=== PATIENT | male | born 1945 | race Caucasian/White ===

== ENCOUNTER 2018-12-17 09:49 | Emergency (ER) | payer MEDICARE ==
[~2018-12-17] VITALS: Ht 172.7 cm; Wt 82.2 kg
[2018-12-17 09:51] VITALS: BP 129/90
[2018-12-17] MEDS ORDERED: TETanus/Pertussis (Acell)/Diphther VAC/PF (Tdap-Adult) 0.5ml syringe IM ONE (11:45)
[2018-12-17] MEDS: bacitracin 15gm ointment TP ONE ×2 (11:45→12:05)
[2018-12-17] MEDS ORDERED: LIDOcaine 1% w/epiNEPHrine 1:200,000 30ml vial IM ONE (11:45)
--- NOTE | 2018-12-17 13:52 | NUR ---
PT LEFT WITHOUT BACITRACIN TREATMENT AND DC PAPERWORK.
== END 2018-12-17 13:52 | disposition home or self-care (01) ==
LOC: ER 09:50
DX: S81.012A Laceration without foreign body, left knee, initial encounter (principal); W20.8XXA Other cause of strike by thrown, projected or falling object, initial encounter; Y93.89 Activity, other specified; Y92.89 Other specified places as the place of occurrence of the external cause; Y99.8 Other external cause status
CPT/HCPCS: 12004; 71045; 73564; 90471; 90715; 99284; J3490

== ENCOUNTER 2025-01-31 11:20 | Emergency (ER) | payer OTHER, MEDICARE ==
[~2025-01-31] VITALS: Ht 172.7 cm; Wt 75.0 kg
[2025-01-31] MEDS: normal saline 500ml IV soln 500 ML IV ONE (11:40)
[2025-01-31] MEDS ORDERED: iohexol 350MG/ML 100ml bottle IV ONE (11:46)
[2025-01-31 12:00] LABS: BASOPHILS % (AUTO) 0.3 % (0-1); EOSINOPHILS # (AUTO) 0.1 X10'3 (0-0.9); EOSINOPHILS % (AUTO) 0.8 % (0-6); HEMATOCRIT 43.7 % (42.0-52.0); HEMOGLOBIN 13.7 g/dl (14.0-17.9); LYMPHOCYTES # (AUTO) 1.4 X10'3 (1.1-4.8); LYMPHOCYTES % (AUTO) 13.1 % (21-51); MEAN CORPUSCULAR HEMOGLOBIN 29.2 PG (27.0-31.0); MEAN CORPUSCULAR HGB CONC 31.4 g/dL (33.0-36.5); MEAN CORPUSCULAR VOLUME 92.9 FL (78-98); MEAN PLATELET VOLUME 8.6 FL (7.4-10.4); MONOCYTES # (AUTO) 0.6 X10'3 (0-0.9); MONOCYTES % (AUTO) 6.1 % (2-12); NEUTROPHILS # (AUTO) 8.5 X10'3 (1.8-7.7); NEUTROPHILS % (AUTO) 79.7 % (42-75); PLATELET COUNT 136 X10'3 (140-440); RED BLOOD COUNT 4.71 X10'6 (4.70-6.10); RED CELL DISTRIBUTION WIDTH 15.8 % (11.5-14.5); WHITE BLOOD COUNT 10.7 X10'3 (4.5-11.0)
[2025-01-31 12:18] LABS: D-DIMER 8.38 MG/L FEU (0-0.50)
[2025-01-31 12:20] LABS: ALANINE AMINOTRANSFERASE 16 U/L (12-78); ALBUMIN 3.5 G/DL (3.4-5.0); ALKALINE PHOSPHATASE 54 IU/L (46-116); ANION GAP 8 (8-16); ASPARTATE AMINO TRANSFERASE 14 U/L (10-37); BLOOD UREA NITROGEN 24 MG/DL (7-18); BUN/CREATININE RATIO 25.8 (10.0-20.0); CALCIUM 8.8 MG/DL (8.5-10.1); CHLORIDE 107 MMOL/L (99-107); CREATININE 0.93 MG/DL (0.60-1.10); GLUCOSE 122 MG/DL (70-104); POTASSIUM 3.8 MMOL/L (3.5-5.1); SODIUM 142 MMOL/L (135-145); eCRCL 64 ML/MIN; eGFR 79 ML/MIN
[2025-01-31 12:28] LABS: MAGNESIUM 2.1 MG/DL (1.5-2.4); PRO BRAIN NATRIURETIC PEPTIDE 343 PG/ML (0-450)
[2025-01-31] MEDS: ondansetron/PF 4mg/2ml inj IV ONE (12:30)
[2025-01-31] MEDS: fentaNYL/PF 50MCG/1 ML 2ML syringe IV ONE ×2 (12:30→12:55)
[2025-01-31] MEDS: morphine 2 MG/ML inj. syringe IV ONE (12:39)
[2025-01-31] MEDS: HYDROmorphone 1 mg/ml syringe IV ONE (13:36)
[2025-01-31] MEDS: niCARDipine-NS 40mg/200ml IVPB 200 ML IV SCH (14:01)
[2025-01-31] MEDS: HYDROmorphone 1 mg/ml syringe IV PRN (18:14)
[2025-01-31 19:16] VITALS: TEMP 98
[2025-01-31] MEDS ORDERED: ASPI-611 PO (20:45)
[2025-01-31] MEDS ORDERED: LISI20TA28 PO (20:45)
[2025-01-31 21:38] VITALS: RESP 16; O2SAT 98
[2025-01-31 22:03] VITALS: BP 114/57; PULSE 63
== END 2025-01-31 22:27 | disposition admitted as inpatient to this hospital (09) ==
LOC: ER 11:21
DX: R07.9 Chest pain, unspecified (principal)
CPT/HCPCS: 36415; 71045; 71275; 74174; 80053; 83605; 83735; 83880; 84484; 85025; 85379; 93005; 96361; 96365; 96366; 96375; 96376; 99285; J1171; J2405; J3010; J3490; J7040; Q9967; J7030